=== PATIENT | male | born 1980 | race Hispanic/Latino ===

== ENCOUNTER 2017-10-16 11:24 | Emergency (ER) | payer SELFPAY | END 2017-10-16 11:53 | disposition home or self-care (01) | LOC: EDH 11:24 | DX: R50.9 Fever, unspecified (principal); R11.10 Vomiting, unspecified; F12.10 Cannabis abuse, uncomplicated; F14.10 Cocaine abuse, uncomplicated; Z72.0 Tobacco use | CPT/HCPCS: 99281 ==

== ENCOUNTER 2021-10-22 09:36 | Emergency (ER) | payer OTHER ==
[~2021-10-22] VITALS: Ht 157.5 cm; Wt 61.2 kg
[2021-10-22 09:37] VITALS: BP 126/84
== END 2021-10-22 10:30 | disposition left against medical advice (07) ==
LOC: EDH 09:36
DX: R51.9 Headache, unspecified (principal); Z53.21 Procedure and treatment not carried out due to patient leaving prior to being seen by health care provider

== ENCOUNTER 2022-04-24 14:32 | Emergency (ER) | payer OTHER ==
[~2022-04-24] VITALS: Ht 157.5 cm; Wt 49.9 kg
[2022-04-24] MEDS ORDERED: KETOROLAC 30MG VIAL (30MG/ML) IVP ONE (15:00)
[2022-04-24] MEDS ORDERED: ONDANSETRON 4MG INJ IVP ONE (15:00)
[2022-04-24 15:22] LABS: APPEARANCE,URINE Cloudy (CLEAR); BILIRUBIN,URINE Negative (NEGATIVE); COLOR,URINE Yellow (YELLOW); GLUCOSE, URINE (UA) Negative (NEGATIVE); KETONES,URINE Trace mg/dL (NEGATIVE); LEUKOCYTE ESTERASE ,URINE Negative (NEGATIVE); NITRATE,URINE Negative (NEGATIVE); OCCULT BLOOD,URINE Large (NEGATIVE); PH,URINE 6.5 (5.0-8.0); PROTEIN,URINE Negative (NEGATIVE)
[2022-04-24] MEDS ORDERED: TAMSULOSIN HCL 0.4 MG CAP.ER.24H ONE (15:29)
[2022-04-24] MEDS ORDERED: MAGNESIUM CITRATE 296 ML SOLUTION ONE (15:29)
[2022-04-24] MEDS ORDERED: MAGNESIUM CITRATE 296 ML SOLUTION PO ONE (15:30)
[2022-04-24] MEDS ORDERED: TAMSULOSIN HCL 0.4 MG CAP.ER.24H PO SCH (15:30)
[2022-04-24] MEDS ORDERED: LACTULOSE 20 GM/30 ML UDCUP PO ONE (15:30)
[2022-04-24 15:31] LABS: BASOPHILS % (AUTO) 0.9 % (0.0-5.0); EOSINOPHILS % (AUTO) 9.1 % (0.0-8.0); HEMATOCRIT 37.4 % (42-54); LYMPHOCYTES % (AUTO) 23.5 % (21.0-51.0); MEAN CORPUSCULAR HEMOGLOBIN 30.5 pg (27.0-33.0); MEAN CORPUSCULAR HGB CONC 33.4 g/dL (32.0-36.0); MEAN CORPUSCULAR VOLUME 91.2 fL (79-99); MONOCYTES % (AUTO) 10.9 % (3.0-13.0); NEUTROPHILS % (AUTO) 55.4 % (40.0-77.0); PLATELET COUNT (AUTO) 257 K/uL (130-400); RED CELL DISTRIBUTION WIDTH 12.4 % (11.0-15.5); WHITE BLOOD COUNT (AUTO) 5.6 K/uL (4.8-10.8)
[2022-04-24 15:36] LABS: CREATININE 1.3 mg/dL (0.5-1.5); POTASSIUM 5.4 mmol/L (3.5-5.1)
[2022-04-24 15:41] LABS: ALBUMIN 3.5 g/dL (3.5-5.0); TOTAL PROTEIN, SERUM 6.5 g/dL (6.0-8.3)
[2022-04-24 15:56] LABS: AMORPHOUS SEDIMENT,UR Few /LPF (None Seen)
[2022-04-24 15:57] LABS: MUCUS,URINE Few LPF (None Seen); SQUAMOUS EPITHELIAL CELL,UR 0-2 /HPF (0-2)
[2022-04-24 15:58] LABS: WBC,URINE 0-1 /HPF (0-1)
[2022-04-24 15:59] LABS: RBC,URINE 51-100 /HPF (0-1)
[2022-04-24 16:01] LABS: BACTERIA,URINE Few /HPF (None Seen)
[2022-04-24 16:07] VITALS: BP 134/86
[2022-04-24] MEDS ORDERED: TAMS-1 PO (16:22)
[2022-04-24] MEDS ORDERED: KETO10 PO (16:22)
[2022-04-24] MEDS ORDERED: LACT10PA5 PO (16:22)
== END 2022-04-24 16:41 | disposition home or self-care (01) ==
LOC: EDH 14:32
DX: N20.0 Calculus of kidney (principal); K59.01 Slow transit constipation; Z98.890 Other specified postprocedural states
CPT/HCPCS: 99284; 74176; 96374; 96375; 80053; 85025; 86140; 81001; 36415; J2405; J1885